=== PATIENT | male | born 1955 | race Caucasian/White ===

== ENCOUNTER 2016-09-10 13:18 | Emergency (ER) | payer BC ==
[2016-09-10 14:32] VITALS: BP 136/94
[2016-09-10] MEDS ORDERED: hydrOXYzine HCL TAB* 25 MG PO ONE (15:54)
--- NOTE | 2016-09-10 16:06 | UC ---
Skin Complaint HPI - HPI Summary HPI Summary: 61 male presents complaining of a rash that began approximately 6 weeks ago. Patient states it has spread and been getting worse over the past couple of days. He was seen by dermatology in [place] who prescribed him a 30 day course of doxycycline and took biopsies/cultures of the lesions. He has been taking the doxycycline for the past 10 days without any improvement. He has actually developed more lesions/rash on his neck and hands. Originally it was just on his torso, back and slightly on his proximal extremities. He complains of it being very itchy with weeping and redness. Denies any new uses of soaps, lotions, colognes. Only new medication he began in July 2016 was Mcdougal. He did also just move from [place] to [place] into a new house when his rash began to appear. Denies trouble breathing, chest pain and pain with the rash. He has never had anything like this before. - History of Current Complaint Chief Complaint: UCSkin Stated Complaint: RASH-BACK/NECK Hx Obtained From: Patient Onset/Duration: Sudden Onset, Lasting Weeks, Still Present, Worse Since Skin Exposure Onset/Duration: Weeks Ago Timing: Constant Onset Severity: Moderate Current Severity: Severe Pain Intensity: 0 Pain Scale Used: 0-10 Numeric Location: Diffuse - back, torso, neck, hands, proximal extremities. sparing genitals and face. Character: Exposure to Heat Intermittent - warm showers make it worse, Swelling , Pruritus, Redness, Raised Aggravating: Showering Alleviating: Other - coconut oil Associated Signs & Symptoms: Positive: Drainage - Allergy/Home Medications Allergies/Adverse Reactions: Allergies Allergy/AdvReac Type Severity Reaction Status Date / Time No Known Allergies Allergy Verified 09/10/16 14:32 Home Medications: Home Medications DOXYcycline CAP(*) [DOXYcycline 100MG CAP(*)] 100 mg PO BID 09/10/16 [History Confirmed 09/10/16] Folic Acid 1 tab PO DAILY 09/10/16 [History Confirmed 09/10/16] Mcdougal Xl 150 mg PO DAILY 09/10/16 [History] Mcdougal-3 Fatty Acids [Fish Oil] 1 tab PO DAILY 09/10/16 [History Confirmed ] Review of Systems Constitutional: Negative Skin: Rash Eyes: Negative ENT: Negative Respiratory: Negative Cardiovascular: Negative Gastrointestinal: Negative Genitourinary: Negative Motor: Negative Neurovascular: Negative Musculoskeletal: Negative Neurological: Negative Psychological: Negative All Other Systems Reviewed And Are Negative: Yes PMH/Surg Hx/FS Hx/Imm Hx Previously Healthy: Yes Endocrine History Of: Denies: Diabetes Cardiovascular History Of: Reports: Cardiac Disorders - [place]-1997 Denies: Hypertension - HEART DISEASE, Pacemaker/ICD GI/ History Of: Denies: Renal Disease - Surgical History Surgical History: Yes Surgery Procedure, Year, and Place: 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 Cardiac Cath 1997. Right Shoulder Surgery 03/12/16 - Family History Known Family History: Positive: Cardiac Disease - Social History Alcohol Use: Daily Alcohol Amount: 1-2 glasses white wine per night Substance Use Type: None Smoking Status (MU): Former Smoker Physical Exam Triage Information Reviewed: Yes Appearance: Well-Appearing - appears uncomfortable, itching upon exam, No Pain Distress, Well-Nourished Vital Signs: Initial Vital Signs Temp 98.4 F 09/10/16 14:24 Pulse 93 09/10/16 14:24 Resp 16 09/10/16 14:24 BP 136/94 09/10/16 14:24 Pulse Ox 100 09/10/16 14:24 Vital Signs Reviewed: Yes Eyes: Positive: Conjunctiva Clear ENT: Positive: Normal ENT inspection Neck: Positive: Supple, Nontender, No Lymphadenopathy Respiratory: Positive: Chest non-tender, Lungs clear, Normal breath sounds, No respiratory distress Cardiovascular: Positive: RRR, No Murmur, Pulses Normal, Brisk Capillary Refill Musculoskeletal Exam: Normal Neurological Exam: Normal Psychological Exam: Normal Skin: Positive: rashes - red, raised rash covering entire back, with spread to torso, proximal extremities, neck and some on b/l hands. Rash has multiple different presentations/stages. Some appear vesicular/hive like others are indurated, clear weeping lesions, few are ulcerated. 2 lesions noted to be sutured from recent biopsy. prurits. Hands appear to be small fluid filled blisters in web-spaces. sparing face, mucosal membranes Course/Dx - Course Course Of Treatment: Discussed course of treatment with Dr Cruz, who also examined patient due to unknown etiology of rash. Patient states he was not given a diagnosis at his household cook either and the results to the biopsies will be given to him in approximately 3-4 weeks. Due to unknown etiology symptomatic relief was given. Patient was given a prescription for hydroxyzine to help with pruritis and trials of topical steroid and topicl antifungal to see which works best for him if any. Told to try it on two small areas. Told to come back to if he finds a topical cream works better for him and would like more. Follow up with dermatology. - Differential Diagnoses - Skin Complaint Differential Diagnoses: Abscess, Allergic Reaction, Cellulitis, Contact Dermatitis, Drug Rash, Eczema, Scabies, Tinea, Urticaria, Viral Exanthem - Diagnoses Provider Diagnoses: rash, unknown etiology, urticaria Discharge - Discharge Plan Condition: Stable Disposition: HOME Prescriptions: Clotrimazole 1% CREAM* [Clotrimazole 1%*] 1 applic TOPICAL BID PRN #1 tube PRN Reason: Rash Clotrimazole 1% CREAM* [Clotrimazole 1%*] 1 applic TOPICAL BID #1 tube Triamcinolone 0.5% CREAM(NF) [Triamcinolone 0.5% CREAM*] 1 applic TOPICAL BID # 1 tube Triamcinolone 0.5% CREAM(NF) [Triamcinolone 0.5% CREAM*] 1 applic TOPICAL BID # 1 tube hydrOXYzine HCL TAB* [Atarax TAB*] 25 mg PO QID PRN #20 tab PRN Reason: Itching hydrOXYzine HCL TAB* [Atarax TAB*] 25 mg PO TID PRN #20 tab PRN Reason: Itching Patient Education Materials: Acute Rash (ED), Urticaria (ED), Antifungals (On the skin), Tinea Corporis (ED) Referrals: Justin Negrete DO [Primary Care Provider] - Karina Naylor [Medical Doctor] - Additional Instructions: Follow-up with dermatology, call and make an appointment. Try test patches with topical cream as instructed. Take prescribed oral medication as needed for itching, if it makes it worse please stop taking the medication. Do not drive while taking this medication. If symptoms worsen please discontinue all medications and follow up with dermatology.
== END 2016-09-10 16:25 | disposition home or self-care (01) ==
LOC: UCEAST 13:18
DX: L50.9 Urticaria, unspecified (principal); R21 Rash and other nonspecific skin eruption; I25.2 Old myocardial infarction; Z87.891 Personal history of nicotine dependence
CPT/HCPCS: 99212; G0463